=== PATIENT | male | born 1970 | race Caucasian/White ===

== ENCOUNTER 2025-01-22 14:08 | Emergency (ER) | payer MEDICARE, MEDICAID ==
[~2025-01-22] VITALS: Ht 182.9 cm; Wt 78.0 kg
[~2025-01-22 14:08] MED LIST: CYCL-1 PO
[2025-01-22 14:09] VITALS: TEMP 98.5
--- NOTE | 2025-01-22 14:19 | Physician Documentation ---
History of Present Illness ~ Chief Complaint: Mechanical Fall Stated Complaint: FALL/BLURRY Time Seen by MD: 17:10 OK to notify your PCP?: Yes Source: patient Mode of Arrival: POV Exam Limitations: no limitations HPI 54-year-old male presents with left head pain forehead laceration and ecchymosis around left eye after falling last night and hitting his head after alcohol intoxication. He remembers the incident but states he did lose consciousness for a couple of sec and then had about 15 seconds have not been able to see out of either eye and that has all since resolved. No thinners. Medication Reconciliation Allergies: Coded Allergies: cephalexin (Verified Allergy, Intermediate, HIVES, 01/22/25) clarithromycin (Verified Allergy, Intermediate, HIVES, 01/22/25) erythromycin base (Verified Allergy, Intermediate, HIVES, 01/22/25) Scheduled PRN Cyclobenzaprine* (Cyclobenzaprine*), 1 TABLET PO BID PRN for muscle spasms Past Medical History Past Medical History: Chronic Back Pain Past Surgical History: orthopedic surgeries Alcohol Use: Occasionally Lives In: Home Occupation: employed Review of Systems All Other Systems at this time: Reviewed and Negative Physical Exam Vital Signs: RN Vital Signs have been reviewed: Yes, Temperature: 98.5, Source: Temporal, Heart Rate: 79, Respiratory Rate: 18, BP: 140/93, Pulse Oximetry: 99, Weight: 78.000 Oxygen Flow Rate: 0 Pulse Oximetry Reflects: adequate oxygenation Physical Exam General: Alert, no distress. HEENT: No injection, moist mucous membranes. PERRLA, EOMI. Neck: Full range of motion. No tenderness to palpation Respiratory: No respiratory distress, equal chest rise and fall. Chest: No accessory muscle use. Cardiovascular: Regular rate and rhythm. Gastrointestinal: Nondistended. Extremities: Normal range of motion, no deformity. Neurologic: Oriented x4. Psychiatric: Normal mood and affect. Skin: Normal color, warm and dry. Edema, ecchymosis, and closed laceration to left forehead. ecchymosis and edema to left orbital area Progress Results/Orders Results/Orders Orders - LEATHA ANDINO NP Acetaminophen 325mg Tablet (Tylenol Tabl (01/22/25 17:20) Dressing Orders (01/22/25 17:18) Wound Care Orders (01/22/25 17:18) Bacitracin Ointment (Bacitracin Ointment (01/22/25 17:20) Vital Signs 01/22/25 01/22/25 01/22/25 14:09 14:35 14:35 Temp 98.5 Pulse 79 76 Resp 18 18 18 B/P (MAP) 140/93 153/94 (113) Pulse Ox 99 97 O2 Flow Rate 0 0 EKG/XRAY/CT/US/VASC/MRI CT : Impression [address] [address] CAT SCAN Patient: ARIANNE LÓPEZ Medical Record: [id number] [facility] : 1970, Age: 54 Sex: Male Location: ER Patient Status: [facility] ER Service Date/Time: 01/22/251415 Ordering Physician: MICHAELA WAGNER Exam: CT HEAD CT CT HEAD INDICATION: fall EXAM DATE: 01/22/2025 02:24 PM COMPARISON: None RADIATION DOSE: CTDIvol: 58 mGy, DLP: 1018 mGy*cm PROCEDURE: CT scans of the head were obtained from the vertex to the skull base. Sagittal and coronal reconstructions were provided. All CT scans at this medical facility are performed using dose modulation techniques as appropriate to a performed exam including the following: Automated exposure control was utilized; adjustment of the MA and/or KV according to patient size; and use of iterative reconstruction technique. FINDINGS: There is sulcal and ventricular prominence. The brainshows normal morphology and cárdenas-white matter differentiation, without intracranial hemorrhage, extra-axial fluid collection, mass effect or acute large vessel infarct. The ventricles are normal in size. The basal cisterns are patent. The skull and visible facial bones are intact. The paranasal sinuses, mastoid air cells and middle ear cavities are well-aerated. The soft tissues of the scalp are unremarkable. IMPRESSION: No acute intracranial abnormality. Electronically Signed by:RONNI MARTIN MD Date & Time: 01/22/251444 Dictated by: RONNI MARTIN MD Dictation date and time: 01/22/251444 Primary Care Provider: NO PRIMARY CARE PROVIDER cc: MICHAELA WAGNER [employer] ~ [address] [address] CAT SCAN Patient: ARIANNE LÓPEZ Medical Record: [id number] [facility] : 1970, Age: 54 Sex: Male Location: ER Patient Status: [facility] ER Service Date/Time: 01/22/251415 Ordering Physician: MICHAELA WAGNER Exam: CT CERVICAL SPINE EXAM: CT CT CERVICAL SPINE INDICATION: fall EXAM DATE: 01/22/2025 02:26 PM COMPARISON: None TECHNIQUE: Multiple axial CT images of the cervical spine were obtained using bone algorithm. Axial and coronal reformatting was done. Bone and soft tissue windows were reviewed. Radiation Dose Information: CT Dose: CTDI volume is 20.21 mGy. Dose-length product is 417.1 mGy*cm Findings: There is no evidence of an acute fracture or spondylolisthesis. The vertebral body heights are well-maintained. The craniocervical junction and dens are intact. No evidence of degenerative disc disease. No neuroforaminal narrowing. No spinal canal stenosis. There is flattening of the cervical lordosis. The thyroid gland is unremarkable. The paraspinal and neck soft tissues appear within normal limits. C2-3: Normal C3-4: Normal C4-5: Normal C5-6: Normal C6-7: Normal C7-T1: Normal Impression: 1. No evidence of an acute fracture. 2. Straightening of the cervical lordosis which may be positional versus muscle spasm. Electronically Signed by:KATE MONTOYA DO Date & Time: 01/22/25 1448 Dictated by: KATE MONTOYA DO Dictation date and time: 01/22/25 1417 Primary Care Provider: NO PRIMARY CARE PROVIDER cc: MICHAELA WAGNER ~ Medical Decision Making Additional Comment This is a 54-year-old male who presented to the emergency department today reporting that he woke up to find bruising around the left eye and a laceration above the left eyebrow. He does recall that he then remembered the incident, and that it included a brief loss of consciousness with some vision changes. CT scan of the head and C-spine pursued, negative. Patient medicated with a acetaminophen in the emergency department. Offered tetanus, patient declined. Wound care provided. Patient to follow up with the primary care provider, return if worse. Departure Time of Disposition: 17:16 Disposition: 01 HOME / SELF CARE / HOMELESS Impression: Primary Impression: Fall Qualified Codes: W19.XXXA - Unspecified fall, initial encounter Additional Impressions: Head injury Concussion Laceration Condition: Stable Discharge Instructions: Concussion, Adult, Fall Prevention in the Home, Adult, Wound Care, Adult Additional Instructions: You declined tetanus vaccine today. Keep your left forehead wound clean and covered with a thin layer of antibiotic ointment. Change daily. See provided concussion instructions. Take Tylenol per label instructions if needed for pain. Followup with primary care. Return if worse. Referrals: NO PRIMARY CARE PROVIDER (PCP) Education Educated: Patient, Family Educated regarding: diagnosis, treatment, prognosis, need for follow up Additional Comment Medical Screen Exam This patient recieved a medical screening examination. After reviewing the individual's medical complaints with presenting symptoms and performing an appropriate physical examination, it was determined that no immediate life-threatening emergency medical condition is present. This individual is also not a women having contractions. Signature Scribe Signature: no scribe Attestation: The note accurately reflects work and decisions made by me.Leatha Vivar NP 01/22/25 17:19 MICHAELA WAGNER Jan 22, 2025 14:19 LEATHA ANDINO NP Jan 22, 2025 17:10
--- NOTE | 2025-01-22 14:47 | RADIOLOGY REPORT ---
CT CT HEAD INDICATION: fall EXAM DATE: 01/22/2025 02:24 PM COMPARISON: None RADIATION DOSE: CTDIvol: 58 mGy, DLP: 1018 mGy*cm PROCEDURE: CT scans of the head were obtained from the vertex to the skull base. Sagittal and coronal reconstructions were provided. All CT scans at this medical facility are performed using dose modulation techniques as appropriate t o a performed exam including the following: Automated exposure control was utilized; adjustment of th e MA and/or KV according to patient size; and use of iterative reconstruction technique. FINDINGS: There is sulcal and ventricular prominence. The brainshows normal morphology and cárdenas-whi te matter differentiation, without intracranial hemorrhage, extra-axial fluid collection, mass effect or acute large vessel infarct. The ventricles are normal in size. The basal cisterns are patent. The skull and visible facial bones are intact. The paranasal sinuses, mastoid air cells and middle ear c avities are well-aerated. The soft tissues of the scalp are unremarkable. IMPRESSION: No acute intracranial abnormality.
--- NOTE | 2025-01-22 14:50 | RADIOLOGY REPORT ---
EXAM: CT CT CERVICAL SPINE INDICATION: fall EXAM DATE: 01/22/2025 02:26 PM COMPARISON: None TECHNIQUE: Multiple axial CT images of the cervical spine were obtained using bone algorithm. Axial a nd coronal reformatting was done. Bone and soft tissue windows were reviewed. Radiation Dose Information: CT Dose: CTDI volume is 20.21 mGy. Dose-length product is 417.1 mGy*cm Findings: There is no evidence of an acute fracture or spondylolisthesis. The vertebral body heights are well-m aintained. The craniocervical junction and dens are intact. No evidence of degenerative disc disease. No neuroforaminal narrowing. No spinal canal stenosis. There is flattening of the cervical lordosis. The thyroid gland is unremarkable. The paraspinal and neck soft tissues appear within normal limits. C2-3: Normal C3-4: Normal C4-5: Normal C5-6: Normal C6-7: Normal C7-T1: Normal Impression: 1. No evidence of an acute fracture. 2. Straightening of the cervical lordosis which may be positional versus muscle spasm.
[2025-01-22] MEDS: bacitracin 15gm ointment TP ONE (17:33)
[2025-01-22] MEDS: acetaminophen 325mg tablet PO ONE (17:33)
[2025-01-22 17:36] VITALS: BP 161/86; PULSE 69; RESP 19; O2SAT 97
== END 2025-01-22 17:37 | disposition home or self-care (01) ==
LOC: ER 14:09
DX: S06.0X1A Concussion with loss of consciousness of 30 minutes or less, initial encounter (principal); S01.81XA Laceration without foreign body of other part of head, initial encounter; F10.129 Alcohol abuse with intoxication, unspecified; Z88.1 Allergy status to other antibiotic agents; W18.00XA Striking against unspecified object with subsequent fall, initial encounter; Y93.89 Activity, other specified; Y92.89 Other specified places as the place of occurrence of the external cause; Y99.8 Other external cause status; Y90.9 Presence of alcohol in blood, level not specified
CPT/HCPCS: 70450; 72125; 99284

== ENCOUNTER 2025-07-09 14:27 | Emergency (ER) | payer MEDICARE, MEDICAID ==
[~2025-07-09] VITALS: Ht 185.4 cm; Wt 98.3 kg
--- NOTE | 2025-07-09 14:55 | Physician Documentation ---
History of Present Illness ~ Chief Complaint: See Chief Complaint Stated Complaint: VOMITING Time Seen by MD: 14:54 Primary Medical Doctor: [facility] HPI 55-year-old male who presents with difficulty swallowing He tells me he was eating breakfast, including ham, eggs, and an [place] muffin. He suddenly developed pain in his lower throat/upper chest. He is not able to swallow. Since that time he is spitting up his saliva. He tried to drink some fluids but they came back up. He reports a sense of discomfort in his upper chest still. No history of esophageal foreign body before. He does report having thing stuck in his throat before but they always eventually passed. No other acute concerns Medication Reconciliation Allergies: Coded Allergies: cephalexin (Verified Allergy, Intermediate, HIVES, 07/09/25) clarithromycin (Verified Allergy, Intermediate, HIVES, 07/09/25) erythromycin base (Verified Allergy, Intermediate, HIVES, 07/09/25) Scheduled PRN Cyclobenzaprine* (Cyclobenzaprine*), 1 TABLET PO BID PRN for muscle spasms Past Medical History Past Medical History: Chronic Back Pain Past Surgical History: orthopedic surgeries Alcohol Use: Occasionally Lives In: Home Occupation: employed Review of Systems Constitutional: Denies: fever ENT: Reports: throat pain Physical Exam Vital Signs: Temperature: 97.7, Source: Temporal, Heart Rate: 71, Respiratory Rate: 20, BP: 139/104, Pulse Oximetry: 98, Weight: 98.300 Oxygen Flow Rate: 0 Physical Exam General: This is a uncomfortable appearing middle-aged man, who is spitting his saliva into a vomit bag HEENT: Atraumatic, oropharynx is moist. He is unable to swallow Heart: Regular rate and rhythm, normal-appearing peripheral perfusion Lungs: normal work of breathing, normal oxygen saturation on room air Neuro: Alert and oriented Psychiatric: Appears anxious about his condition but is cooperative with exam Progress Results/Orders Results/Orders Completed Orders - ROSEMARY GONZALEZ MD Ondansetron Inj. (Zofran 4mg/2ml Vial) (07/09/25 15:05) Glucagon, Human Recombinant (Glucagen In (07/09/25 15:05) Pantoprazole 40mg Iv (Protonix 40mg Iv) (07/09/25 15:05) Nitroglycerin Sublingual Tab (Nitrostat (07/09/25 15:05) Diazepam Inj (Valium Inj) (07/09/25 16:40) Medications Received in ER Medications (Trade) Dose Ordered Sig/True Route PRN Reason Start Time Stop Time Status Last Admin Dose Admin (Zofran 4mg/2ml vial) 4 mg ONCE ONCE IV 07/09/25 15:05 07/09/25 15:06 DC 07/09/25 15:24 4 MG (Glucagen inj) 1 mg ONCE ONCE IV 07/09/25 15:05 07/09/25 15:06 DC 07/09/25 15:19 1 MG (Protonix 40mg IV) 40 mg ONCE ONCE IV 07/09/25 15:05 07/09/25 15:06 DC 07/09/25 15:24 40 MG (Nitrostat SL tablet) 0.4 mg ONCE ONCE SL 07/09/25 15:05 07/09/25 15:06 DC 07/09/25 15:20 0.4 MG Vital Signs 07/09/25 07/09/25 07/09/25 07/09/25 14:40 14:58 14:58 16:24 Temp 97.7 Pulse 71 85 79 Resp 20 18 16 18 B/P (MAP) 139/104 152/91 (111) 147/125 (132) Pulse Ox 98 97 97 O2 Flow Rate 0 0 0 07/09/25 07/09/25 17:00 17:00 Pulse 75 Resp 16 16 B/P (MAP) 150/91 (110) Pulse Ox 94 O2 Flow Rate 0 Re-Evaluation Re-Evaluation : Re-Evaluation Time: 16:25 Re-Evaluation: Unchanged Progress The patient is still can not swallow and still has a foreign body sensation. This is after try and glucagon, nitro, soda, and other interventions. Plan is for GI consult. Consults/PCP Consults/PCP : Additional Comment Consult: I spoke to Dr. Jiang, GI. Requested evaluation for endoscopy. Medical Decision Making Additional information obtaine: N/A Findings na Diff Dx GI Bleed:Consideration: Include: Esophagitis Diff Dx Pain:Considerations: Include: Esophagitis Diff Dx N/V/D:Considerations: Include: Gastroenteritis Diff Dx Rectal:Considerations: Unlikely: Subcutaneous abscess Additional Comments The patient presents with throat pain and difficulty swallowing. His history and exam appear consistent with a esophageal foreign body with a obstruction. An IV was placed and he was given Zofran, glucagon, and oral nitrates. He was given Protonix. After these treatments and soda he still can not swallow. GI team consulted for endoscopy. Plan will be endoscopy for food impaction removal, and if successful and he will return to the ER for discharge. Departure Disposition: HOME / SELF CARE / HOMELESS Impression: Primary Impression: Impacted esophageal foreign body Condition: Improved Referrals: NO PRIMARY CARE PROVIDER (PCP) Education Educated: Patient Educated regarding: diagnosis, treatment, need for follow up Signature Scribe Signature: azalia Attestation: ROSEMARY Bowles MD Jul 09, 2025 14:55
[2025-07-09] MEDS: glucagon, human recombinant 1mg kit IV ONE (15:19)
[2025-07-09] MEDS: ondansetron/PF 4mg/2ml inj IV ONE (15:24)
[2025-07-09] MEDS: diazepam inj 5 MG/ML inj. IV ONE (17:00)
[2025-07-09] MEDS ORDERED: fentaNYL/PF 50MCG/1 ML 2ML syringe ONE (19:55)
[2025-07-09] MEDS ORDERED: midazolam 1 mg/ML 2ml injection ONE (19:56)
[2025-07-09] MEDS ORDERED: propofol inj 20 ML IV ONE ×4 (20:41→20:42)
[2025-07-09 20:54] VITALS: BP 98/65; PULSE 69; RESP 14; O2SAT 98
[2025-07-09 21:00] VITALS: BP 104/70; PULSE 67; RESP 21; O2SAT 98
[2025-07-09 21:10] VITALS: BP 132/84; PULSE 65; RESP 21; O2SAT 93
[2025-07-09 21:20] VITALS: BP 137/78; PULSE 66; RESP 21; O2SAT 95
[2025-07-09 21:55] VITALS: BP 142/88; PULSE 68; RESP 23; O2SAT 97
[2025-07-09 22:13] VITALS: TEMP 97.7
--- NOTE | 2025-07-11 18:35 | PATHOLOGY REPORT ---
[facility] [address] [place] [address] SURGICAL PATHOLOGY REPORT CaseNumber: [id number] Surgeon:Paula Nolasco PA-C CLINICAL INFORMATION CLINICAL INFORMATION: Not provided. DIAGNOSIS DIAGNOSIS: STOMACH, ANTRUM; BIOPSY - MILD CHRONIC INFLAMMATION. - NEGATIVE FOR INTESTINAL METAPLASIA. - NEGATIVE FOR H. PYLORI BY IMMUNOPEROXIDASE STUDY. - NEGATIVE FOR DYSPLASIA/NEOPLASIA. MICROSCOPIC DESCRIPTION MICROSCOPIC DESCRIPTION: One H&E stained slide is examined. Present is gastric antral. There are some specialized glands suggesting transitional zone. There are eight there is a mild chronic inflammatory infiltrate composed predominantly of lymphocytes. There is no significant active inflammation, no intestinal metaplasia, and no dysplasia/neoplasia. Immunoperoxidase study for H. pylori does not highlight organisms. GROSS DESCRIPTION GROSS DESCRIPTION: Received in a container of formalin labeled with the patient's name, number, and "antrum BX" is a 0.6 x 0.2 x 0.1 cm piece of hensley tissue. The specimen is entirely submitted as A1. The time at which the specimen was removed was 824. The time at which the specimen was placed in formalin was 826. Electronically signed by: Malachi Clifton M.D. 07/11/2025 6:01:00 PM
== END 2025-07-09 22:15 | disposition home or self-care (01) ==
LOC: ER 14:28
DX: T18.108A Unspecified foreign body in esophagus causing other injury, initial encounter (principal); G89.29 Other chronic pain; Z88.1 Allergy status to other antibiotic agents; Z72.89 Other problems related to lifestyle; Z98.890 Other specified postprocedural states; W44.9XXA Unspecified foreign body entering into or through a natural orifice, initial encounter; Y93.89 Activity, other specified; Y92.89 Other specified places as the place of occurrence of the external cause; Y99.8 Other external cause status
CPT/HCPCS: 43247; 88305; 88342; 96374; 96375; 99285; A4615; C1769; C1889; J1610; J2250; J2405; J2470; J2704; J3010; J7120; Z7512; Z7610